=== PATIENT | female | born 1945 | race Two or more races ===

== ENCOUNTER 2016-12-20 07:11 | Inpatient (IN) | payer OTHER ==
[~2016-12-20] VITALS: Ht 144.8 cm; Wt 57.0 kg
[2016-12-20] VITALS (37 sets, daily range): BP systolic 79–178; BP diastolic 39–78; PULSE 42–81; RESP 13–25; Ht 144.8 cm; Wt 57.0 kg
[~2016-12-20 07:11] MED LIST: CEFAZOLIN 1 GM INJ ONE
[2016-12-20] MEDS ORDERED: POLYMYXIN/BACITRACIN 1L IRRIG ONE (07:17)
[2016-12-20] MEDS ORDERED: BACITRACIN/POLYMYXIN 28.35 GM OINT TOP ONE (07:21)
[2016-12-20] MEDS ORDERED: CHOL100062 PO (07:53)
[2016-12-20] MEDS ORDERED: [UNRECOGNIZED DRUG - CODE] PO (07:54)
--- NOTE | 2016-12-20 08:41 | HPN ---
Date/Time of Note Date/Time of Note DATE: 12/20/16 TIME: 08:40 Interval H&P Admission Note Pt. seen H&P reviewed: No system changes BRIAN MCKENNA MD Dec 20, 2016 08:41
[2016-12-20] MEDS ORDERED: morphine SULFATE/PF (10 MG/10 ML) INJ ONE (08:43)
[2016-12-20] MEDS ORDERED: PHENYLephrine (100 MCG/ML) 5ML SYG ONE ×2 (08:43→09:47)
[2016-12-20] MEDS ORDERED: PROPOFOL 100 ML ONE (08:43)
[2016-12-20] MEDS ORDERED: hydrALAzine 20 MG INJ ONE (08:43)
[2016-12-20] MEDS ORDERED: TRANEXAMIC ACID 1,000 MG in SOD CHLORIDE 0.9% 100 ML IV ONE (09:00)
[2016-12-20] MEDS ORDERED: HETASTARCH 6% NACL 500 ML ONE (09:47)
[2016-12-20] MEDS ORDERED: KETOROLAC 30 MG INJ ONE (09:47)
[2016-12-20] MEDS ORDERED: ONDANSETRON 4 MG INJ ONE (09:47)
[2016-12-20] MEDS ORDERED: METOCLOPRAMIDE 10 MG INJ ONE (09:47)
[2016-12-20] MEDS ORDERED: ACETAMINOPHEN 1000MG/100ML IV 100 ML ONE (09:47)
[2016-12-20] MEDS ORDERED: DEXAMETHASONE 4 MG/ML 1 ML INJ ONE (09:48)
[2016-12-20] MEDS ORDERED: PHENYLephrine 10 MG INJ ONE (09:59)
[2016-12-20] MEDS ORDERED: ONDANSETRON 4 MG INJ IV PRN ×3 (10:30→19:00)
[2016-12-20] MEDS ORDERED: HYDROmorphONE (0.2 MG/ML) 10ML SYG IV PRN ×2 (10:30)
[2016-12-20] MEDS ORDERED: MEPERIDINE 25 MG INJ IV PRN (10:30)
[2016-12-20] MEDS ORDERED: FENTAnyl 50 MCG/ML VIAL IV PRN ×2 (10:30)
[2016-12-20] MEDS ORDERED: ALBUMIN HUMAN 5% 250 ML IV PRN (10:30)
[2016-12-20] MEDS ORDERED: TRANEXAMIC ACID 570 MG in SOD CHLORIDE 0.9% 100 ML IVPB ONE (10:30)
[2016-12-20] MEDS ORDERED: EPHEDrine SULFATE 50 MG/5 ML SYG IV PRN (10:30)
[2016-12-20] MEDS ORDERED: NALOXONE (0.4 MG/ML) INJ IV PRN (10:30)
[2016-12-20] MEDS ORDERED: morphine (1 MG/ML) 10ML SYRINGE IV PRN ×2 (10:30)
[2016-12-20] MEDS ORDERED: DIPHENHYDRAMINE 50 MG INJ IV PRN ×2 (10:30→19:00)
[2016-12-20] MEDS: CEFAZOLIN 1 GM/50 ML (PMX) 50 ML IVPB SCH ×2 (11:31→19:54)
[2016-12-20] MEDS ORDERED: morphine 2 MG INJ IV PRN ×3 (12:30→19:00)
[2016-12-20] MEDS: SOD CHLORIDE 0.9% 1,000 ML IV SCH (13:18)
[2016-12-20] MEDS: ACETAMINOPHEN 325 MG TAB PO PRN (13:20)
[2016-12-20] MEDS ORDERED: NACL 0.9% 3 ML SYG IV SCH (13:30)
[2016-12-20] MEDS ORDERED: HYDROCODONE/APAP (5/325) TAB PO PRN (13:30)
--- NOTE | 2016-12-20 14:28 | RADRPT ---
PROCEDURE: XR Pelvis. CLINICAL INDICATION: Pelvic pain. TECHNIQUE: Single AP view of the pelvis. COMPARISON: No prior studies are available for comparison. FINDINGS: There is no fracture or dislocation. There is no lytic or blastic lesion. The right hip is unremarkable. There is marked deformity of the left hip with small left femoral he ad and degenerative changes superiorly. There is no radiopaque foreign body. The sacroiliac joints, as visualized, are grossly unremarkable. IMPRESSION: 1. Normal right hip. 2. Marked deformity of the left hip. RPTAT: QQ .Davin Dougherty MD, MD Date Time Electronically viewed and signed by .Davin Dougherty MD, MD on 12/20/2016 14:28 .R/
[2016-12-20] MEDS ORDERED: morphine 4 MG/ML VIAL IV PRN (19:00)
[2016-12-20] MEDS ORDERED: NALBUPHINE HCL (10 MG/1 ML) INJ IV PRN (19:00)
[2016-12-20] MEDS ORDERED: HYDROmorphONE 1 MG/ML SYG IV PRN ×2 (19:00)
--- NOTE | 2016-12-20 20:35 | QN ---
Documentation Comment [id number] KESHIA TOWNSEND MD Dec 20, 2016 20:35
[2016-12-21] MEDS: CEFAZOLIN 1 GM/50 ML (PMX) 50 ML IVPB SCH (04:27)
--- NOTE | 2016-12-21 04:27 | CONS ---
DATE OF ADMISSION: 12/20/2016 DATE OF CONSULTATION: TYPE OF CONSULTATION: Nephrology HISTORY OF PRESENT ILLNESS: The patient seen at the request of Dr. Nunes. The patient has a hi story of arthritis, underwent left hip surgery. The patient is being seen post-procedure. PAST MEDICAL HISTORY: Negative for diabetes, hypertension. ALLERGY HISTORY: NEGATIVE. FAMILY HISTORY: Negative. SOCIAL HISTORY: Negative. MEDICATION HISTORY: Vitamin D3 and ____. REVIEW OF SYSTEMS HEENT: Unremarkable. RESPIRATORY: Unremarkable. CARDIOVASCULAR: No chest pain, palpitation. ABDOMEN: No dyspepsia, hematemesis, or melena. EXTREMITIES: Complaining of some pain in the hip. Otherwise unremarkable. PHYSICAL EXAMINATION: GENERAL: The patient is awake, alert. VITAL SIGNS: Show pulse 62, blood pressure ____. HEAD: Atraumatic, normocephalic. Pupils equal, reactive to light. NECK: Supple. No JVD. LUNGS: Clear. CARDIOVASCULAR: S1, S2 normal. ABDOMEN: Soft, nontender. Bowel sounds present. No palpable mass. EXTREMITIES: No cyanosis, clubbing, or edema. MUSCULOSKELETAL: Range of motion restricted because of the pain. LABORATORY DATA: None. IMPRESSION: 1. Left hip surgery. 2. Arthritis. 3. Incomplete database. IMAGING: The patient's hip x-ray shows patient has mild deformity of the left hip. PLAN: To continue home medication, pain medication, IV fluids. Followup postop orders were written . The patient will follow up with Dr. Nunes, the primary surgeon. Laboratory data has been obt ained for tomorrow. The patient will also have DVT prophylaxis. Orders were done. Dictated By: KESHIA TOWNSEND MD BS/NTS Conf#: [id number] DID#: [id number] CC: BRIAN NUNES MD;*EndCC*
--- NOTE | 2016-12-21 05:10 | OPR ---
DATE OF OPERATION: 12/20/2016 SURGEON: Brian Nunes MD LITERACY CONSULTANT: DAKSHA Hyde ANESTHESIA: General. 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 POSTOPERATIVE DIAGNOSIS: Left hip osteoarthritis with avascular necrosis and collapse of the femora l head. PROCEDURE PERFORMED: Left total hip replacement arthroplasty using Rosales and Nephew components, 32 mm Oxinium head size trial femoral component, high offset. 0 mm neck, and a 48 mm acetabulum with th ree 2.5 mm screws. ESTIMATED BLOOD LOSS: 400 mL COMPLICATIONS: None. DESCRIPTION OF PROCEDURE: The patient was taken to the operating room and a spinal block given foll owed by general anesthesia. Kefzol 2 grams given for prophylaxis. A gram of tranexamic acid given. The patient was carefully positioned in the decubitus position, stabilized by the peg board with a n axillary roll and padding of all extremities. Left hip prepped and draped in the usual sterile ma nner. Posterolateral incision made. Fascia divided. Arthrotomy was performed. The hip was disloc ated. The femoral neck osteotomized 1 fingerbreadth above the lesser trochanter. Acetabulum debrid ed of soft tissue. Acetabulum was then prepared with reaming down to the tear drop followed by sequ ential reaming to size 48 mm. A 48 minimal trial fit well with good coverage and getting down to th e bottom of the acetabulum. Definitive components were inserted, and three 2.[address] d through the screw holes with good fixation. A manhole cover placed followed by liner with lip at the 2 o'clock position. The canal was prepared with ____ lateralizing humeral straight reaming to s ize 12 and 14. The 12 mm broach fit well tightly, and trial reduction was carried out with a high-o ffset minus and 0, and the 0 provided good stability with symmetrical limb length. Intraoperative x -ray taken showing satisfactory placement of the components. Definitive components were inserted. The wound irrigated. Hemostasis ascertained using cautery. No active bleeding encountered. Hip re duced. The hip appeared stable in flexion, extension, internal rotation, and external rotation. Ex ternal rotators and retractors ____ trochanter with #2 FiberWire sutures. Fascia closed with #1 Ketan ryl sutures. Skin closed with chris. Compression bandage applied, abduction pillow ____, anesthe tic reversed. The patient was taken to recovery in stable condition. Dictated By: BRIAN MARKS/MARYJANE Conf#: [id number] DID#: [id number]
[2016-12-21 05:32] LABS: ADD SCAN DIFF NO
[2016-12-21 05:49] LABS: BASOPHILS % 0.1 % (0.0-2.0); HEMATOCRIT 22.2 % (37.0-47.0); HEMOGLOBIN 7.2 g/dl (12.0-16.0); LYMPHOCYTES # 1.2 10^3/ul (0.8-2.9); LYMPHOCYTES % 8.8 % (15.0-51.0); MEAN CORPUSCULAR HEMOGLOBIN 30.9 pg (29.0-33.0); MEAN CORPUSCULAR HGB CONC 32.4 g/dl (32.0-37.0); MEAN CORPUSCULAR VOLUME 95.3 fl (82.0-101.0); MEAN PLATELET VOLUME 12.4 fl (7.4-10.4); MONOCYTES % 7.5 % (0.0-11.0); NEUTROPHIL # 11.3 10^3/ul (1.6-7.5); NEUTROPHILS % 83.2 % (39.0-77.0); PLATELET COUNT 149 10^3/UL (140-415); RED BLOOD COUNT 2.33 10^6/ul (4.20-5.40); RED CELL DISTRIBUTION WIDTH 12.8 % (11.5-14.5); WHITE BLOOD COUNT 13.6 10^3/ul (4.8-10.8)
[2016-12-21 05:54] LABS: ALBUMIN 2.1 g/dl (3.3-4.9)
[2016-12-21] MEDS: PANTOPRAZOLE (EC) 40 MG TAB PO SCH (05:54)
[2016-12-21 05:56] LABS: BILIRUBIN,INDIRECT 0.1 mg/dl (0-1.1); BILIRUBIN,TOTAL 0.1 mg/dl (0.2-1.3); CREATININE 0.55 mg/dl (0.44-1.00); TOTAL PROTEIN 4.2 g/dl (6.1-8.1)
[2016-12-21 05:57] LABS: CALCIUM 7.7 mg/dl (8.4-10.2)
[2016-12-21 07:16] VITALS: BP 94/51; RESP 15
[2016-12-21] MEDS: ENOXAPARIN 30 MG/0.3 ML SYG SC SCH (09:00)
[2016-12-21] MEDS: SOD CHLORIDE 0.9% 1,000 ML IV SCH (11:14)
[2016-12-21 15:30] VITALS: BP 125/60; PULSE 108; RESP 16
[2016-12-21 15:50] VITALS: BP 115/57; PULSE 101; RESP 16
[2016-12-21 16:20] VITALS: BP 111/56; PULSE 101; RESP 16
[2016-12-21 17:20] VITALS: BP 119/58; PULSE 97; RESP 17
--- NOTE | 2016-12-21 17:52 | PN ---
Date/Time of Note Date/Time of Note DATE: 12/21/16 TIME: 17:49 Assessment/Plan VTE Prophylaxis VTE Prophylaxis Intervention: other Lines/Catheters IV Catheter Type (from Nrs): Peripheral IV Urinary Cath still in place: Yes Reason Cath still needed: other (indicate) Assessment/Plan Chief Complaint/Hosp Course IMPRESSION: 1. Left hip surgery. 2. Arthritis. 3. Incomplete database. 4 ANEMIA PLAN CBC Problems: Subjective 24 Hr Interval Summary Cardiovascular: no complaints Gastrointestinal: no complaints Musculoskeletal: bone/joint pain (+) Exam/Review of Systems Vital Signs Vitals Vital Signs Date Time Temp Pulse Resp B/P Pulse Ox O2 Delivery O2 Flow Rate FiO2 12/21/16 17:20 99.4 97 17 119/58 12/21/16 07:16 100 12/20/16 21:19 Nasal Cannula 2.0 Intake and Output 12/20/16 12/20/16 12/21/16 15:00 23:00 07:00 Intake Total 1450 ml 640 ml 540 ml Output Total 1100 ml 800 ml 450 ml Balance 350 ml -160 ml 90 ml Exam Respiratory: clear to auscultation Cardiovascular: regular rate and rhythm Gastrointestinal: soft Extremities: normal pulses Results Result Diagram: 12/21/16 0420 12/21/16 0420 Results 24 hrs Laboratory Tests Test 12/21/16 04:20 Alanine Aminotransferase (ALT/SGPT) 32 Albumin 2.1 L Albumin/Globulin Ratio 1.00 Alkaline Phosphatase 49 Anion Gap 10 Aspartate Amino Transf (AST/SGOT) 19 Basophils # 0.0 Basophils % 0.1 Blood Urea Nitrogen 12 Calcium Level 7.7 L Carbon Dioxide Level 28 Chloride Level 107 Creatinine 0.55 Direct Bilirubin 0.00 Eosinophils # 0.0 Eosinophils % 0.0 Globulin 2.10 Glucose Level 106 Hematocrit 22.2 L Hemoglobin 7.2 L Indirect Bilirubin 0.1 Lymphocytes # 1.2 Lymphocytes % 8.8 L Mean Corpuscular Hemoglobin 30.9 Mean Corpuscular Hemoglobin Concent 32.4 Mean Corpuscular Volume 95.3 Mean Platelet Volume 12.4 H Monocytes # 1.0 H Monocytes % 7.5 Neutrophils # 11.3 H Neutrophils % 83.2 H Nucleated Red Blood Cells # 0.0 Nucleated Red Blood Cells % 0.0 Platelet Count 149 Potassium Level 4.0 Red Blood Count 2.33 L Red Cell Distribution Width 12.8 Sodium Level 141 Total Bilirubin 0.1 L Total Protein 4.2 L White Blood Count 13.6 H Medications Medications Current Medications Hydromorphone HCl (Dilaudid) 0.2 mg Q2H PRN IV PAIN LEVEL 1-5; Start 12/20/16 at 19:00 Hydromorphone HCl (Dilaudid) 0.4 mg Q2H PRN IV PAIN LEVEL 6-10 Last administered on 12/20/16 19:27; Admin Dose 0.4 MG; Start 12/20/16 at 19:00 Morphine Sulfate (morphine) 4 mg Q2H PRN IV PAIN LEVEL 6-10; Start 12/20/16 at 19:00 Diphenhydramine HCl (Benadryl) 25 mg Q4H PRN IV PRURITUS; Start 12/20/16 at 19: 00 Nalbuphine HCl (Nubain) 10 mg Q4H PRN IV PRURITUS; Start 12/20/16 at 19:00 Ondansetron HCl (Zofran Inj) 4 mg Q6H PRN IV NAUSEA AND/OR VOMITING; Start 12/20 at 19:00 Naloxone HCl (Narcan) 0.2 mg Q2M PRN IV FOR RESP RATE 8 OR LESS; Start 12/20/16 at 10:30 Morphine Sulfate 2 mg 2 mg Q4H PRN IV PAIN LEVEL 4-6; Start 12/20/16 at 12:30 Sodium Chloride (NS) 1,000 ml @ 40 mls/hr Q24H IV Last administered on 11:14; Admin Dose 40 MLS/HR; Start 12/20/16 at 13:01 Ondansetron HCl (Zofran Inj) 4 mg Q6H PRN IV NAUSEA AND/OR VOMITING; Start 12/20 at 13:30 Acetaminophen (Tylenol Tab) 650 mg Q6H PRN PO PAIN LEVEL 1-3 OR FEVER Last administered on 12/20/16 13:20; Admin Dose 650 MG; Start 12/20/16 at 13:30 Acetaminophen/ Hydrocodone Bitart ([place] (5/325)) 1 tab Q6H PRN PO MODERATE PAIN LEVEL 4-6 Last administered on 12/21/16 11:14; Admin Dose 1 TAB; Start 12/20/16 at 13:30 Acetaminophen/ Hydrocodone Bitart ([place] (5/325)) 2 tab Q6H PRN PO SEVERE PAIN LEVEL 7-10; Start 12/20/16 at 13:30 Morphine Sulfate (morphine) 2 mg Q4H PRN IV SEVERE PAIN LEVEL 7-10; Start at 13:30 Pantoprazole (Protonix Tab) 40 mg DAILY@06 PO Last administered on 12/21/16t 05 :54; Admin Dose 40 MG; Start 12/21/16 at 06:00 Enoxaparin Sodium (Lovenox) 30 mg DAILY SC ; Start 12/21/16 at 09:00 KESHIA TOWNSEND MD Dec 21, 2016 17:51
[2016-12-21] MEDS: HYDROCODONE/APAP (5/325) TAB PO PRN (18:35)
[2016-12-21 21:10] VITALS: BP 122/60; RESP 20
[2016-12-22] MEDS: HYDROCODONE/APAP (5/325) TAB PO PRN ×3 (04:47→20:30)
[2016-12-22 05:12] LABS: ADD SCAN DIFF NO
[2016-12-22 05:14] LABS: BASOPHILS % 0.3 % (0.0-2.0); EOSINOPHILS % 0.3 % (0.0-7.0); HEMATOCRIT 26.9 % (37.0-47.0); HEMOGLOBIN 8.8 g/dl (12.0-16.0); LYMPHOCYTES % 18.9 % (15.0-51.0); MEAN CORPUSCULAR HEMOGLOBIN 30.3 pg (29.0-33.0); MEAN CORPUSCULAR HGB CONC 32.7 g/dl (32.0-37.0); MEAN CORPUSCULAR VOLUME 92.8 fl (82.0-101.0); MONOCYTE # 0.8 10^3/ul (0.3-0.9); MONOCYTES % 7.9 % (0.0-11.0); NEUTROPHIL # 7.7 10^3/ul (1.6-7.5); NEUTROPHILS % 72.3 % (39.0-77.0); PLATELET COUNT 137 10^3/UL (140-415); RED CELL DISTRIBUTION WIDTH 13.2 % (11.5-14.5); WHITE BLOOD COUNT 10.7 10^3/ul (4.8-10.8)
[2016-12-22] MEDS: PANTOPRAZOLE (EC) 40 MG TAB PO SCH (05:33)
[2016-12-22 08:19] VITALS: BP 101/51; RESP 18
[2016-12-22] MEDS: ENOXAPARIN 30 MG/0.3 ML SYG SC SCH (08:59)
[2016-12-22] MEDS: SOD CHLORIDE 0.9% 1,000 ML IV SCH (12:50)
[2016-12-22 19:10] VITALS: BP 136/65; RESP 18
--- NOTE | 2016-12-22 19:26 | PN ---
Date/Time of Note Date/Time of Note DATE: 12/22/16 TIME: 19:25 Assessment/Plan VTE Prophylaxis VTE Prophylaxis Intervention: other Lines/Catheters IV Catheter Type (from Nrsg): Peripheral IV Urinary Cath still in place: Yes Reason Cath still needed: other (indicate) Assessment/Plan Chief Complaint/Hosp Course IMPRESSION: 1. Left hip surgery. 2. Arthritis. 3. Incomplete database. 4 ANEMIA PLAN per ortho Problems: Subjective 24 Hr Interval Summary Cardiovascular: no complaints Exam/Review of Systems Vital Signs Vitals Vital Signs Date Time Temp Pulse Resp B/P Pulse Ox O2 Delivery O2 Flow Rate FiO2 12/22/16 08:19 98.0 91 18 101/51 99 12/21/16 20:32 Nasal Cannula 2.0 Intake and Output 12/21/16 12/21/16 12/22/16 15:00 23:00 07:00 Intake Total 400 ml 620 ml 1380 ml Output Total 1300 ml 2400 ml Balance 400 ml -680 ml -1020 ml Exam Respiratory: clear to auscultation Cardiovascular: regular rate and rhythm Gastrointestinal: soft Musculoskeletal: nl extremities to inspection Extremities: normal pulses Results Result Diagram: 12/22/16 0425 12/21/16 0420 Results 24 hrs Laboratory Tests Test 12/22/16 04:25 Basophils # 0.0 Basophils % 0.3 Eosinophils # 0.0 Eosinophils % 0.3 Hematocrit 26.9 #L Hemoglobin 8.8 #L Lymphocytes # 2.0 Lymphocytes % 18.9 Mean Corpuscular Hemoglobin 30.3 Mean Corpuscular Hemoglobin Concent 32.7 Mean Corpuscular Volume 92.8 Mean Platelet Volume 12.0 H Monocytes # 0.8 Monocytes % 7.9 Neutrophils # 7.7 H Neutrophils % 72.3 Nucleated Red Blood Cells # 0.0 Nucleated Red Blood Cells % 0.0 Platelet Count 137 L Red Blood Count 2.90 #L Red Cell Distribution Width 13.2 White Blood Count 10.7 # Medications Medications Current Medications Hydromorphone HCl (Dilaudid) 0.2 mg Q2H PRN IV PAIN LEVEL 1-5; Start 12/20/16 at 19:00 Hydromorphone HCl (Dilaudid) 0.4 mg Q2H PRN IV PAIN LEVEL 6-10 Last administered on 12/20/16t 19:27; Admin Dose 0.4 MG; Start 12/20/16 at 19:00 Morphine Sulfate (morphine) 4 mg Q2H PRN IV PAIN LEVEL 6-10; Start 12/20/16 at 19:00 Diphenhydramine HCl (Benadryl) 25 mg Q4H PRN IV PRURITUS; Start 12/20/16 at 19: 00 Nalbuphine HCl (Nubain) 10 mg Q4H PRN IV PRURITUS; Start 12/20/16 at 19:00 Ondansetron HCl (Zofran Inj) 4 mg Q6H PRN IV NAUSEA AND/OR VOMITING; Start 12/20 at 19:00 Naloxone HCl (Narcan) 0.2 mg Q2M PRN IV FOR RESP RATE 8 OR LESS; Start 12/20/16 at 10:30 Morphine Sulfate 2 mg 2 mg Q4H PRN IV PAIN LEVEL 4-6; Start 12/20/16 at 12:30 Sodium Chloride (NS) 1,000 ml @ 40 mls/hr Q24H IV Last administered on 11:14; Admin Dose 40 MLS/HR; Start 12/20/16 at 13:01 Ondansetron HCl (Zofran Inj) 4 mg Q6H PRN IV NAUSEA AND/OR VOMITING; Start 12/20 at 13:30 Acetaminophen (Tylenol Tab) 650 mg Q6H PRN PO PAIN LEVEL 1-3 OR FEVER Last administered on 12/20/16 13:20; Admin Dose 650 MG; Start 12/20/16 at 13:30 Acetaminophen/ Hydrocodone Bitart ([place] (5/325)) 1 tab Q6H PRN PO MODERATE PAIN LEVEL 4-6 Last administered on 12/21/16 11:14; Admin Dose 1 TAB; Start 12/20/16 at 13:30 Acetaminophen/ Hydrocodone Bitart ([place] (5/325)) 2 tab Q6H PRN PO SEVERE PAIN LEVEL 7-10 Last administered on 12/22/16 13:26; Admin Dose 2 TAB; Start at 13:30 Morphine Sulfate (morphine) 2 mg Q4H PRN IV SEVERE PAIN LEVEL 7-10; Start at 13:30 Pantoprazole (Protonix Tab) 40 mg DAILY@06 PO Last administered on 12/22/16 05 :33; Admin Dose 40 MG; Start 12/21/16 at 06:00 Enoxaparin Sodium (Lovenox) 30 mg DAILY SC Last administered on 12/22/16t 08:59 ; Admin Dose 30 MG; Start 12/21/16 at 09:00 KESHIA TOWNSEND MD Dec 22, 2016 19:26
[2016-12-23 00:14] VITALS: BP 119/57; RESP 18
[2016-12-23] MEDS: PANTOPRAZOLE (EC) 40 MG TAB PO SCH (05:40)
[2016-12-23] MEDS: HYDROCODONE/APAP (5/325) TAB PO PRN ×2 (05:40→16:19)
[2016-12-23 08:08] VITALS: BP 109/56; RESP 20
[2016-12-23] MEDS: ACETAMINOPHEN 325 MG TAB PO PRN (08:42)
[2016-12-23] MEDS: ENOXAPARIN 30 MG/0.3 ML SYG SC SCH (08:50)
[2016-12-23] MEDS: SOD CHLORIDE 0.9% 1,000 ML IV SCH (12:24)
--- NOTE | 2016-12-23 16:55 | PN ---
Date/Time of Note Date/Time of Note DATE: 12/23/16 TIME: 16:53 Assessment/Plan VTE Prophylaxis VTE Prophylaxis Intervention: other Lines/Catheters IV Catheter Type (from Nrsg): Saline Lock Urinary Cath still in place: Yes Reason Cath still needed: other (indicate) Assessment/Plan Chief Complaint/Hosp Course IMPRESSION: 1. Left hip surgery. 2. Arthritis. 3. Incomplete database. 4 ANEMIA PLAN per ortho PT/OT SNF SOON Problems: Subjective 24 Hr Interval Summary Respiratory: No shortness of breath (BETTER) Exam/Review of Systems Vital Signs Vitals Vital Signs Date Time Temp Pulse Resp B/P Pulse Ox O2 Delivery O2 Flow Rate FiO2 12/23/16 08:08 99.1 96 20 109/56 97 12/21/16 20:32 Nasal Cannula 2.0 Intake and Output 12/22/16 12/22/16 12/23/16 15:00 23:00 07:00 Intake Total 320 ml 1200 ml 1350 ml Output Total 1250 ml 1500 ml Balance 320 ml -50 ml -150 ml Exam Respiratory: clear to auscultation, normal air movement Cardiovascular: regular rate and rhythm Gastrointestinal: bowel sounds, soft Results Result Diagram: 12/22/16 0425 12/21/16 0420 Medications Medications Current Medications Hydromorphone HCl (Dilaudid) 0.2 mg Q2H PRN IV PAIN LEVEL 1-5; Start 12/20/16 at 19:00 Hydromorphone HCl (Dilaudid) 0.4 mg Q2H PRN IV PAIN LEVEL 6-10 Last administered on 12/20/16t 19:27; Admin Dose 0.4 MG; Start 12/20/16 at 19:00 Morphine Sulfate (morphine) 4 mg Q2H PRN IV PAIN LEVEL 6-10; Start 12/20/16 at 19:00 Diphenhydramine HCl (Benadryl) 25 mg Q4H PRN IV PRURITUS; Start 12/20/16 at 19: 00 Nalbuphine HCl (Nubain) 10 mg Q4H PRN IV PRURITUS; Start 12/20/16 at 19:00 Ondansetron HCl (Zofran Inj) 4 mg Q6H PRN IV NAUSEA AND/OR VOMITING; Start 12/20 at 19:00 Naloxone HCl (Narcan) 0.2 mg Q2M PRN IV FOR RESP RATE 8 OR LESS; Start 12/20/16 at 10:30 Morphine Sulfate 2 mg 2 mg Q4H PRN IV PAIN LEVEL 4-6; Start 12/20/16 at 12:30 Sodium Chloride (NS) 1,000 ml @ 40 mls/hr Q24H IV Last administered on 11:14; Admin Dose 40 MLS/HR; Start 12/20/16 at 13:01 Ondansetron HCl (Zofran Inj) 4 mg Q6H PRN IV NAUSEA AND/OR VOMITING; Start 12/20 at 13:30 Acetaminophen (Tylenol Tab) 650 mg Q6H PRN PO PAIN LEVEL 1-3 OR FEVER Last administered on 12/23/16 08:42; Admin Dose 650 MG; Start 12/20/16 at 13:30 Acetaminophen/ Hydrocodone Bitart ([place] (5/325)) 1 tab Q6H PRN PO MODERATE PAIN LEVEL 4-6 Last administered on 12/21/16 11:14; Admin Dose 1 TAB; Start 12/20/16 at 13:30 Acetaminophen/ Hydrocodone Bitart ([place] (5/325)) 2 tab Q6H PRN PO SEVERE PAIN LEVEL 7-10 Last administered on 12/23/16 16:19; Admin Dose 2 TAB; Start at 13:30 Morphine Sulfate (morphine) 2 mg Q4H PRN IV SEVERE PAIN LEVEL 7-10; Start at 13:30 Pantoprazole (Protonix Tab) 40 mg DAILY@06 PO Last administered on 12/23/16 05 :40; Admin Dose 40 MG; Start 12/21/16 at 06:00 Enoxaparin Sodium (Lovenox) 30 mg DAILY SC Last administered on 12/23/16 08:50 ; Admin Dose 30 MG; Start 12/21/16 at 09:00 KESHIA TOWNSEND MD Dec 23, 2016 16:54
[2016-12-23] MEDS ORDERED: NA PHOSPHATE/BIPHOS 133 ML ENEMA PR PRN (17:30)
[2016-12-23] MEDS ORDERED: POLYETHYLENE GLYCOL 17 GM PACKET PO PRN (17:30)
[2016-12-23 19:45] VITALS: BP 119/60; RESP 20
[2016-12-23 20:32] VITALS: BP 130/69; RESP 16
[2016-12-24] MEDS: HYDROCODONE/APAP (5/325) TAB PO PRN (03:42)
[2016-12-24] MEDS: PANTOPRAZOLE (EC) 40 MG TAB PO SCH (05:59)
[2016-12-24 07:30] VITALS: BP 115/57; RESP 19
[2016-12-24] MEDS: BISACODYL (EC) 5 MG TAB PO PRN (10:05)
[2016-12-24] MEDS: ENOXAPARIN 30 MG/0.3 ML SYG SC SCH (10:07)
[2016-12-24] MEDS: ACETAMINOPHEN 325 MG TAB PO PRN (10:08)
[2016-12-24] MEDS: SOD CHLORIDE 0.9% 1,000 ML IV SCH (12:41)
--- NOTE | 2016-12-24 16:55 | PDOCDIS ---
Discharge Instructions CONDITION Patient Condition: Stable HOME CARE INSTRUCTIONS: Special Diet: Low fat low chol ACTIVITY: Activity Restrictions: Slowly Increase Activity FOLLOW UP/APPOINTMENTS Appointments f/u dr gonzalez 1wKESHIA Boucher MD Dec 24, 2016 16:55
[2016-12-24 19:15] VITALS: BP 117/59; RESP 18
--- NOTE | 2016-12-24 23:40 | PN ---
Date/Time of Note Date/Time of Note DATE: 12/24/16 TIME: 23:39 Assessment/Plan VTE Prophylaxis VTE Prophylaxis Intervention: other Lines/Catheters IV Catheter Type (from Nrsg): Peripheral IV Urinary Cath still in place: No Assessment/Plan Chief Complaint/Hosp Course IMPRESSION: 1. Left hip surgery. 2. Arthritis. 3. Incomplete database. 4 ANEMIA PLAN per ortho PT/OT SNF SOON Problems: Subjective 24 Hr Interval Summary Cardiovascular: no complaints Gastrointestinal: no complaints Exam/Review of Systems Vital Signs Vitals Vital Signs Date Time Temp Pulse Resp B/P Pulse Ox O2 Delivery O2 Flow Rate FiO2 12/24/16 19:15 99.0 87 18 117/59 97 12/21/16 20:32 Nasal Cannula 2.0 Intake and Output 12/23/16 12/23/16 12/24/16 15:00 23:00 07:00 Intake Total 1180 ml 800 ml Output Total 1350 ml 1000 ml Balance -170 ml -200 ml Exam Respiratory: clear to auscultation Cardiovascular: regular rate and rhythm Gastrointestinal: soft Musculoskeletal: nl extremities to inspection Results Result Diagram: 12/22/16 0425 12/21/16 0420 Medications Medications Current Medications Hydromorphone HCl (Dilaudid) 0.2 mg Q2H PRN IV PAIN LEVEL 1-5; Start 12/20/16 at 19:00 Hydromorphone HCl (Dilaudid) 0.4 mg Q2H PRN IV PAIN LEVEL 6-10 Last administered on 12/20/16t 19:27; Admin Dose 0.4 MG; Start 12/20/16 at 19:00 Morphine Sulfate (morphine) 4 mg Q2H PRN IV PAIN LEVEL 6-10; Start 12/20/16 at 19:00 Diphenhydramine HCl (Benadryl) 25 mg Q4H PRN IV PRURITUS; Start 12/20/16 at 19: 00 Nalbuphine HCl (Nubain) 10 mg Q4H PRN IV PRURITUS; Start 12/20/16 at 19:00 Ondansetron HCl (Zofran Inj) 4 mg Q6H PRN IV NAUSEA AND/OR VOMITING; Start 12/20 at 19:00 Naloxone HCl (Narcan) 0.2 mg Q2M PRN IV FOR RESP RATE 8 OR LESS; Start 12/20/16 at 10:30 Morphine Sulfate 2 mg 2 mg Q4H PRN IV PAIN LEVEL 4-6; Start 12/20/16 at 12:30 Sodium Chloride (NS) 1,000 ml @ 40 mls/hr Q24H IV Last administered on 11:14; Admin Dose 40 MLS/HR; Start 12/20/16 at 13:01 Ondansetron HCl (Zofran Inj) 4 mg Q6H PRN IV NAUSEA AND/OR VOMITING; Start 12/20 at 13:30 Acetaminophen (Tylenol Tab) 650 mg Q6H PRN PO PAIN LEVEL 1-3 OR FEVER Last administered on 12/24/16 10:08; Admin Dose 650 MG; Start 12/20/16 at 13:30 Acetaminophen/ Hydrocodone Bitart ([place] (5/325)) 1 tab Q6H PRN PO MODERATE PAIN LEVEL 4-6 Last administered on 12/21/16 11:14; Admin Dose 1 TAB; Start 12/20/16 at 13:30 Acetaminophen/ Hydrocodone Bitart ([place] (5/325)) 2 tab Q6H PRN PO SEVERE PAIN LEVEL 7-10 Last administered on 12/24/16 03:42; Admin Dose 2 TAB; Start at 13:30 Morphine Sulfate (morphine) 2 mg Q4H PRN IV SEVERE PAIN LEVEL 7-10; Start at 13:30 Pantoprazole (Protonix Tab) 40 mg DAILY@06 PO Last administered on 12/24/16 05 :59; Admin Dose 40 MG; Start 12/21/16 at 06:00 Enoxaparin Sodium (Lovenox) 30 mg DAILY SC Last administered on 12/24/16 10:07 ; Admin Dose 30 MG; Start 12/21/16 at 09:00 Polyethylene Glycol (Miralax) 17 gm DAILY PRN PO CONSTIPATION Last administered on 12/23/16 17:55; Admin Dose 17 GM; Start 12/23/16 at 17:30 Bisacodyl (Dulcolax) 10 mg BID PRN PO CONSTIPATION Last administered on 10:05; Admin Dose 10 MG; Start 12/23/16 at 17:30 Sodium Biphosphate/ Sodium Phosphate (Fleet Enema) 133 ml DAILY PRN RI CONSTIPATION; Start 12/23/16 at 17:30 KESHIA TOWNSEND MD Dec 24, 2016 23:40
[2016-12-25] MEDS: ACETAMINOPHEN 325 MG TAB PO PRN ×2 (03:18→10:21)
[2016-12-25] MEDS: PANTOPRAZOLE (EC) 40 MG TAB PO SCH (06:00)
[2016-12-25 08:22] VITALS: BP 113/58; RESP 18
[2016-12-25] MEDS: ENOXAPARIN 30 MG/0.3 ML SYG SC SCH (08:56)
[2016-12-25] MEDS: SOD CHLORIDE 0.9% 1,000 ML IV SCH (10:10)
[2016-12-25] MEDS: BISACODYL (EC) 5 MG TAB PO PRN (10:21)
== END 2016-12-25 16:15 | DRG 470 ==
LOC: REC 07:11 → MS1 12:45
PROVIDERS: ADMIT Specialist; ATTEND Specialist
PROC: 0SRB04Z Replacement of Left Hip Joint with Ceramic on Polyethylene Synthetic Substitute, Open Approach (ICD-10-PCS; principal; 2016-12-20 12:30)
PROC: 30233N1 Transfusion of Nonautologous Red Blood Cells into Peripheral Vein, Percutaneous Approach (ICD-10-PCS; 2016-12-21)
DX: M16.12 Unilateral primary osteoarthritis, left hip (principal); D64.9 Anemia, unspecified; I10 Essential (primary) hypertension
CPT/HCPCS: 36430; 72170; 73530; 80053; 85025; 86850; 86900; 86901; 86920; 87086; 88304; 88311; 97110; 97116; 97162; 97530; C1713; C1776; J0131; J0360; J0690; J1100; J1170; J1650; J1885; J2274; J2370; J2405; J2765; J7030; P9016

== ENCOUNTER 2017-01-09 13:05 | Emergency (ER) | payer OTHER ==
[~2017-01-09] VITALS: Wt 65.0 kg
[~2017-01-09 13:05] MED LIST changes: -CEFAZOLIN 1 GM INJ ONE; +CHOL100062 PO; +[UNRECOGNIZED DRUG - CODE] PO
[2017-01-09] MEDS ORDERED: KETOROLAC 30 MG INJ IM STA (14:59)
[2017-01-09] MEDS ORDERED: HYDROCODONE/APAP (5/325) TAB PO ONE (16:00)
[2017-01-09] MEDS ORDERED: SOD CHLORIDE 0.9% 1,000 ML IV STA (16:33)
[2017-01-09] MEDS ORDERED: morphine 4 MG/ML VIAL IV STA (16:33)
[2017-01-09] MEDS ORDERED: ONDANSETRON 4 MG INJ IV STA (16:33)
--- NOTE | 2017-01-09 16:42 | RADRPT ---
PROCEDURE: XR Hip. CLINICAL INDICATION: Left hip pain. Surgery 3 weeks ago TECHNIQUE: AP and frog lateral views of the left hip were performed. COMPARISON: Intraoperative exposures 12/20/2016 FINDINGS: The prosthetic component of the proximal femur is dislocated, superior and lateral to the metallic a cetabular prosthetic component. There is no evidence of fracture. No periprosthetic lucency is demon strated. Generalized demineralization cannot exclude osteopenia. Skin chris are visualized on the lateral aspect. . RPTAT:HJJR IMPRESSION: Dislocation of the left hip arthroplasty, the metallic femoral head superior lateral to the prosthet ic acetabulum without evidence of fracture. Physician Loren Date Time Electronically viewed and signed by Physician Loren on 01/09/2017 16:42 /
[2017-01-09 16:52] LABS: ADD SCAN DIFF NO
[2017-01-09 16:57] LABS: HEMATOCRIT 33.7 % (37.0-47.0); HEMOGLOBIN 10.9 g/dl (12.0-16.0); MEAN CORPUSCULAR HEMOGLOBIN 30.4 pg (29.0-33.0); MEAN CORPUSCULAR HGB CONC 32.3 g/dl (32.0-37.0); MEAN CORPUSCULAR VOLUME 94.1 fl (82.0-101.0); MEAN PLATELET VOLUME 11.1 fl (7.4-10.4); PLATELET COUNT 372 10^3/UL (140-415); RED BLOOD COUNT 3.58 10^6/ul (4.20-5.40); RED CELL DISTRIBUTION WIDTH 13.6 % (11.5-14.5); WHITE BLOOD COUNT 14.2 10^3/ul (4.8-10.8)
[2017-01-09 17:08] LABS: INR 1.01; PROTIME 13.3 Sec (12.2-14.2)
[2017-01-09 17:09] LABS: PARTIAL THROMBOPLASTIN TIME 25.8 Sec (25.0-35.0)
[2017-01-09 17:11] LABS: POTASSIUM 3.7 mmol/L (3.5-5.1)
[2017-01-09 17:13] LABS: CREATININE 0.53 mg/dl (0.44-1.00)
[2017-01-09 17:14] LABS: CALCIUM 9.8 mg/dl (8.4-10.2)
[2017-01-09] MEDS ORDERED: MIDAZOLAM 1 MG/ML 2 ML INJ IV ONE (17:30)
[2017-01-09] MEDS ORDERED: PROPOFOL 200 MG INJ IV ONE (17:30)
[2017-01-09] MEDS ORDERED: FENTAnyl 50 MCG/ML VIAL IV ONE (17:30)
[2017-01-09] MEDS ORDERED: IBUP-1542 PO (18:34)
--- NOTE | 2017-01-09 18:48 | RADRPT ---
PROCEDURE: XR Hip. CLINICAL INDICATION: Post reduction left hip dislocation TECHNIQUE: AP and frog lateral views of the left hip were performed. COMPARISON: 01/09/2017 FINDINGS: The metallic femoral head portion of the prosthesis now articulates normally with the metallic aceta bulum aspect of the prosthesis consistent with successful interval left prosthetic hip dislocation r eduction. There is demineralization with no evidence of fracture or periprosthetic lucency. Skin s taples are again seen RPTAT:HJJR IMPRESSION: Successful interval reduction in left prosthetic hip dislocation as compared to earlier the same day . Physician Loren Date Time Electronically viewed and signed by Physician Loren on 01/09/2017 18:48 JR/
[2017-01-09 18:55] VITALS: BP 110/52; PULSE 89; RESP 20; TEMP 98.6
--- NOTE | 2017-01-09 20:17 | ERD ---
ER Documentation Chief Complaint Date/Time DATE: 01/09/17 TIME: 20:06 Chief Complaint non traumatic left hip pain no movement for 1 hr. s/p hip replaced 3 wks HPI 71-year-old woman complaining of left hip pain and deformity after feeling a pop while walking. She is status post total left hip arthroplasty 3 weeks ago. She denies any wound dehiscence, no redness around the surgical incision site , no discharge. After the episode earlier today while walking she could no longer walk or bear weight on the left lower extremity. Patient denies head or neck injury, no paresis or paresthesias, no chest pain or shortness of breath. ROS All systems reviewed and are negative except as per history of present illness. Medications Home Meds Active Scripts Ibuprofen* (Ibuprofen*) 600 Mg Tablet, 600 MG PO Q8 for PAIN AND/OR INFLAMMATION , #30 TAB Prov:IVETTE ANG MD 01/09/17 Reported Medications Diclofenac Sodium* (Voltaren* XR) 100 Mg Tab.sr.24h, 100 MG PO DAILY, TAB.SA 12/20/16 Cholecalciferol* (Vitamin D3*) 1,000 Unit Tablet, 5000 UNIT PO DAILY, TAB 12/20/16 Allergies Allergies: Coded Allergies: No Known Allergy (Unverified , 01/09/17) PMhx/Soc Total hip arthroplasty on the left 3 weeks ago History of Surgery: Yes (TAHBSO, CHOLECYSTECTOMY, BLADDER SUSPENSION, LT HIP REPLACEMENT ) Anesthesia Reaction: No Hx Neurological Disorder: No Hx Respiratory Disorders: No Hx Cardiac Disorders: No Hx Psychiatric Problems: Yes (ANXIETY) Hx Miscellaneous Medical Probl: Yes ( arthritis) Hx Alcohol Use: No Hx Substance Use: No Hx Tobacco Use: No Smoking Status: Never smoker FmHx Family History: No diabetes Physical Exam Vitals Vital Signs Date Time Temp Pulse Resp B/P Pulse Ox O2 Delivery O2 Flow Rate FiO2 01/09/17 18:55 98.6 89 20 110/52 99 Room Air 01/09/17 18:49 15.0 01/09/17 18:30 98.6 68 16 132/68 99 Room Air 01/09/17 17:30 98.6 72 16 148/74 99 Room Air 01/09/17 17:00 98.6 74 16 144/69 99 Room Air 01/09/17 16:40 76 18 139/67 99 Room Air 01/09/17 13:14 98.9 82 21 160/71 100 Physical Exam GENERAL: Well-developed, in moderate pain HEENT: Moist mucous membranes, pink conjunctiva, no cervical spine tenderness or step-off deformities, no goiter, no jaundice or icterus, extraocular movements intact without pain. No submandibular induration, and no pharyngeal erythema NEURO: Alert and oriented 3, cranial nerves II through XII intact bilaterally, pupils equal round reactive to light, no focal deficits or facial asymmetry, sensation intact distally Strength 5/5 in upper and lower extremities bilaterally CARDIAC: Regular rate and rhythm, no murmurs rubs or gallops LUNGS: Clear bilaterally no wheezing crackles or stridor ABDOMEN: Soft nontender, no guarding, no rigidity, no rebound, no psoas sign no obturator sign. Normoactive bowel sounds SKIN: Left lateral hip as a surgical incision site which appears clean and dry, chris are intact, there is no wound dehiscence, no skin erythema or induration , no purulent discharge EXTREMITIES: There is soft tissue tenderness to the left lateral hip and obvious bony deformity, distal pulses are equal bilateral, calves are bilaterally symmetrical PSYCH: Normal affect without agitation or irritability Result Diagram: 01/09/17 1640 01/09/17 1640 Results 24 hrs Laboratory Tests Test 01/09/17 16:40 White Blood Count 14.210^3/ul Red Blood Count 3.5810^6/ul Hemoglobin 10.9g/dl Hematocrit 33.7% Mean Corpuscular Volume 94.1fl Mean Corpuscular Hemoglobin 30.4pg Mean Corpuscular Hemoglobin Concent 32.3g/dl Red Cell Distribution Width 13.6% Platelet Count 52195^3/UL Mean Platelet Volume 11.1fl Prothrombin Time 13.3Sec Prothrombin Time Ratio 1.0 INR International Normalized Ratio 1.01 Activated Partial Thromboplast Time 25.8Sec Sodium Level 139mmol/L Potassium Level 3.7mmol/L Chloride Level 104mmol/L Carbon Dioxide Level 23mmol/L Anion Gap 16 Blood Urea Nitrogen 15mg/dl Creatinine 0.53mg/dl Glucose Level 139mg/dl Calcium Level 9.8mg/dl Current Medications Medications (Trade) Dose Ordered Sig/Alvin Route PRN Reason Start Time Stop Time Status Last Admin Dose Admin Ketorolac Tromethamine (Toradol) 30 mg ONCE STAT IM 3/29/17 14:59 01/09/17 15:02 DC 01/09/17 15:08 Acetaminophen/ Hydrocodone Bitart 1 tab 1 tab ONCE ONCE PO 01/09/17 16:00 01/09/17 16:01 DC 01/09/17 16:00 Sodium Chloride (NS) 1,000 ml @ 1,000 mls/hr Q1H STAT IV 01/09/17 16:33 01/09/17 17:32 DC 01/09/17 16:39 Morphine Sulfate (morphine) 4 mg ONCE STAT IV 01/09/17 16:33 01/09/17 16:34 DC 01/09/17 16:39 Ondansetron HCl (Zofran Inj) 4 mg ONCE STAT IV 01/09/17 16:33 01/09/17 16:34 DC 01/09/17 16:39 Propofol (Diprivan) 200 mg ONCE ONCE IV 01/09/17 17:30 01/09/17 17:31 DC 01/09/17 18:27 Fentanyl (Sublimaze) 100 mcg ONCE ONCE IV 01/09/17 17:30 01/09/17 17:31 DC 01/09/17 18:27 Midazolam HCl (Versed) 2 mg ONCE ONCE IV 01/09/17 17:30 01/09/17 17:31 DC 01/09/17 18:27 Procedures/MDM IV line was established patient was placed on threat monitoring analyst rhythm strip revealed a sinus rhythm at about 80 bpm with upright P and T waves. Patient received [place] 1 tablet p.o. Toradol 15 mg IV, Zofran 4 mg IV, and later morphine 4 mg IV with good pain control. Patient also received 1 L normal saline intravenously. X-ray left hip 2V Interpreted by me: Bones: Total left hip arthroplasty with dislocation of the surgical head of the left femur from the socket Joints: Positive left acetabular femoral dislocation Foreign body: Surgical hardware Procedural Sedation: Pre-assessment performed. See preceding complete history and physical for details. Time out performed. See sedation documentation for details. Risk, benefits and alternatives were discussed with the patient. Medication(s): Midazolam 2 mg IV 1, fentanyl 100 g IV 1, and propofol 100 mg IV 1 Complications: No hypoxic or apneic events Recovered without incident. A minimum of 21 minutes of face to face time was performed including preparation, sedation and recovery time. Left hip reduction by me: Anesthesia: Fentanyl Location: Left hip Technique: Initially applied longitudinal traction at the flexed left hip although this was unsuccessful and then simple internal rotation of the extended left lower extremity was performed causing immediate successful reduction of the left acetabular femoral joint Results: [employer] of normal anatomic positioning Compl: Neurovascularly intact post procedure. Long-leg knee immobilizer was placed, post splint assessment: Neurovascularly intact post sling placement with good fit. Post-reduction X-ray left hip 2 view interpreted by me: Bones: No fracture Joints: Relocation of previously noted dislocation Foreign body: Surgical hardware CBC was unremarkable, electrolytes revealed a BUN/creatinine 15/0.5. Recommendation was she follow-up with her orthopedic surgeon as scheduled, both written and verbal recommendations were provided to her and her son who is at the bedside and who will be driving her home. Differential diagnoses considered, included but not limited to DVT, septic arthritis, wound dehiscence, abdominal aortic aneurysm, sepsis, stroke, meningitis, encephalitis, pneumonia, appendicitis, cholecystitis, bowel obstruction, pyelonephritis, nephrolithiasis, cystitis, as well as metabolic, hematologic, and electrolyte abnormalities. As well as abscess, cellulitis, fractures, and dislocations. Patient feels much better at this time, and vital signs are normal, symptoms have improved. I did give strict instructions to return to the ED if symptoms continue or worsen, patient will otherwise follow-up with primary care physician. Patient understood instructions and agreed to plan. Departure Diagnosis: Primary Impression: Hip dislocation, left Encounter type: initial encounter Qualified Code: S73.005A - Hip dislocation , left, initial encounter Additional Impression: S/P closed reduction of dislocated total hip prosthesis Condition: Good Patient Instructions: Dislocation, Other Joint IVETTE ANG MD Jan 09, 2017 20:17
[2017-01-09 20:34] LABS: LYMPHOCYTES % 5.3 % (15.0-51.0); MONOCYTES % 2.7 % (0.0-11.0); NEUTROPHILS % 91.8 % (39.0-77.0)
[2017-01-09 20:35] LABS: BASOPHILS % 0.4 % (0.0-2.0); EOSINOPHILS % 0.1 % (0.0-7.0)
== END 2017-01-09 18:58 | disposition home or self-care (01) ==
LOC: FTE 13:05 → E/R 18:58
DX: S73.005A Unspecified dislocation of left hip, initial encounter (principal); X50.9XXA Other and unspecified overexertion or strenuous movements or postures, initial encounter; Y92.9 Unspecified place or not applicable; Z96.642 Presence of left artificial hip joint
CPT/HCPCS: 73510; 80048; 85025; 85610; 85730; J1885; J2250; J2270; J2405; J3010; J7030; Z7610; 36415; 96372; 96374; 96375